=== PATIENT | male | born 1975 | race Caucasian/White ===

== ENCOUNTER → 2024-02-05 06:29 | Day surgery (SDC) | payer OTHER, SELFPAY ==
[2024-02-05 09:09] LABS: Glucose - Point of Care 134 mg/dl (70-99)
== END ==
LOC: GI 06:29
PROVIDERS: ATTENDING PHYSICIAN Internal Medicine Gastroenterology
DX: R12 Heartburn (principal); K22.89 Other specified disease of esophagus; K31.7 Polyp of stomach and duodenum; K31.89 Other diseases of stomach and duodenum; K22.70 Barrett's esophagus without dysplasia; K29.50 Unspecified chronic gastritis without bleeding
CPT/HCPCS: 43239; 88305; 82962; 88342

== ENCOUNTER → 2024-03-11 14:23 | Outpatient (REF) | payer OTHER, SELFPAY | LOC: DHSLP 14:23 | PROVIDERS: ATTENDING PHYSICIAN Nurse Practitioner Adult Health | DX: G47.33 Obstructive sleep apnea (adult) (pediatric) (principal) | CPT/HCPCS: 95806 ==

== ENCOUNTER → 2024-08-29 07:31 | Outpatient (REF) | payer OTHER, SELFPAY | LOC: RAD 07:31 | PROVIDERS: ATTENDING PHYSICIAN Internal Medicine Gastroenterology; FAMILY PHYSICIAN Nurse Practitioner Adult Health | DX: R10.9 Unspecified abdominal pain (principal) | CPT/HCPCS: 78227; A9537; J2805 ==

== ENCOUNTER 2025-03-03 06:21 | Day surgery (SDC) | payer OTHER, SELFPAY | END 2025-03-03 11:15 | disposition home or self-care (01) | LOC: GI 06:21 | PROVIDERS: ATTENDING PHYSICIAN Internal Medicine Gastroenterology | DX: Z12.11 Encounter for screening for malignant neoplasm of colon (principal); K64.8 Other hemorrhoids; K57.30 Diverticulosis of large intestine without perforation or abscess without bleeding; K62.1 Rectal polyp; K62.6 Ulcer of anus and rectum; K63.5 Polyp of colon; Z86.0100 Personal history of colon polyps, unspecified | CPT/HCPCS: 45385; 88305 ==

== ENCOUNTER → 2025-03-11 19:14 | Outpatient (REF) | payer OTHER, SELFPAY | LOC: PAVMRI 19:14 | PROVIDERS: ATTENDING PHYSICIAN Physician Assistant Surgical; FAMILY PHYSICIAN Internal Medicine | DX: M23.92 Unspecified internal derangement of left knee (principal); M25.562 Pain in left knee; M25.462 Effusion, left knee; M17.32 Unilateral post-traumatic osteoarthritis, left knee | CPT/HCPCS: 73721 ==

== ENCOUNTER → 2025-04-18 07:06 | Outpatient (REF) | payer OTHER, SELFPAY | LOC: RAD 07:06 | PROVIDERS: ATTENDING PHYSICIAN Dentist Oral and Maxillofacial Surgery; FAMILY PHYSICIAN Nurse Practitioner Adult Health | DX: C80.1 Malignant (primary) neoplasm, unspecified (principal) | CPT/HCPCS: 70491; Q9967 ==